=== PATIENT | male | born 1940 ===

== ENCOUNTER 2017-02-22 22:52 | Inpatient (IN) | payer MEDICARE, MEDICAID ==
[2017-02-22] MEDS ORDERED: Iohexol 240 (50 ml) PO ONE (23:20)
[2017-02-22] MEDS ORDERED: Iohexol 240 (50 ml) ONE (23:38)
[2017-02-22 23:41] LABS: BASO # 0.1 K/uL (0.0-0.2); BASO % 0.5 % (0.0-2.0); EOS # 0.3 K/uL (0.0-0.7); EOS % 3.1 % (0.0-4.0); HEMATOCRIT 40.8 % (35.0-51.0); LYMPH # 1.5 K/uL (1.0-4.3); LYMPH % 14.2 % (20.0-40.0); MEAN CELL VOLUME 90.9 fl (80.0-94.0); MEAN CORPUSCULAR HEMOGLOBIN 29.4 pg (27.0-31.0); MEAN CORPUSCULAR HGB CONC 32.3 g/dL (33.0-37.0); MEAN PLATELET VOLUME 9.7 fl (7.2-11.7); MONO # 1.1 K/uL (0.0-0.8); MONO % 10.3 % (0.0-10.0); NEUT # 7.6 K/uL (1.8-7.0); NEUT % 71.9 % (50.0-75.0); RED CELL DISTRIBUTION WIDTH 12.8 % (11.5-14.5); WHITE BLOOD COUNT 10.6 K/uL (4.8-10.8)
[2017-02-22 23:50] LABS: ALB/GLOB RATIO 1.4 (1.0-2.1); ALKALINE PHOSPHATASE 166 U/L (38-126); ALT/SGPT 48 U/L (21-72); AST/SGOT 45 U/L (17-59); BILIRUBIN,TOTAL 1.5 mg/dl (0.2-1.3); BLOOD UREA NITROGEN 13 mg/dl (9-20); CALCIUM 8.5 mg/dL (8.4-10.2); CARBON DIOXIDE 25 mmol/L (22-30); CHLORIDE 104 mmol/L (98-107); GFR AFRICAN-AMERICAN > 60; GLUCOSE,RANDOM 137 mg/dL (75-110); LIPASE 350 U/L (23-300); MAGNESIUM 1.8 MG/DL (1.6-2.3); PHOSPHOROUS 3.1 mg/dl (2.5-4.5); POTASSIUM 3.7 MMOL/L (3.6-5.0); SODIUM 142 mmol/l (132-148); TOTAL PROTEIN 6.6 G/DL (6.3-8.2)
--- NOTE | 2017-02-22 23:51 | ED PDOC ---
HPI: Abdomen Time Seen by Provider: 02/22/17 23:08 Chief Complaint (Nursing): Shortness Of Breath Chief Complaint (Provider): Abdominal Pain History Per: Patient History/Exam Limitations: no limitations Onset/Duration Of Symptoms: Intermittent Episodes, Worse Since (x1 day), Other ( x4 months duration in total) Outside of [place] travel?: No Current Symptoms Are (Timing): Still Present Location Of Pain/Discomfort: RUQ, Epigastric, LUQ Associated Symptoms: Nausea. denies: Fever, Urinary Symptoms Additional Complaint(s): 76 year old male presents to ED with complaints of intermittent abdominal pain x4 months and was recently diagnosed with h. pylori. Patient notes a past medical history of HTN and hypercholesterolemia. Patient notes that he completed a course of medication, but the pain returned x3 months later with more severity. Patient states that yesterday the pain restarted and has been constant since onset. Localizes pain to the epigastric region and radiating to the bilateral upper quadrants. (+) increased reflux and nausea. (-) vomiting, diarrhea, constipation, black/bloody stool, fever, or urinary symptoms. Patient notes that he took antacid for the pain with no relief. Patient also reports an 8 lb. unintentional weight loss since 4 months ago. PCP [facility] Past Medical History Reviewed: Historical Data, Nursing Documentation, Vital Signs Vital Signs: Last Vital Signs Temp 98.8 F 02/25/17 12:00 Pulse 80 02/25/17 12:00 Resp 18 02/25/17 12:00 BP 119/67 02/25/17 12:00 Pulse Ox 90 L 02/25/17 12:00 - Medical History PMH: HTN, Kidney Stones, Chronic Kidney Disease Denies: No Chronic Diseases - Surgical History Other surgeries: Prostate surgery, ureteral stent - Family History Family History: States: No Known Family Hx - Social History Current smoker - smoking cessation education provided: No Ex-Smoker (has not smoked in the last 12 months): No Alcohol: None Drugs: Denies - Home Medications Home Medications: Ambulatory Orders Medication Instructions Recorded Aspirin [[place] Aspirin] 81 mg PO DAILY 10/02/15 Atorvastatin [Lipitor] 20 mg PO DAILY 10/02/15 Losartan [Cozaar] 50 mg PO DAILY 10/02/15 - Allergies Allergies/Adverse Reactions: Allergies Allergy/AdvReac Type Severity Reaction Status Date / Time No Known Allergies Allergy Verified 10/02/15 11:12 Review of Systems ROS Statement: Except As Marked, All Systems Reviewed And Found Negative Constitutional: Positive for: Weight loss (8 lb weight loss in last 4 months). Negative for: Fever Gastrointestinal: Positive for: Nausea, Abdominal Pain (epigastric radiating to bilateral upper quadrants), Other ((+) increased reflux). Negative for: Vomiting, Diarrhea, Constipation, Melena, Hematochezia Genitourinary Male: Negative for: Dysuria, Frequency, Incontinence, Hematuria Physical Exam - Reviewed Nursing Documentation Reviewed: Yes Vital Signs Reviewed: Yes - Physical Exam Appears: Positive for: Non-toxic, In Acute Distress (acute painful distress) Skin: Positive for: Normal Color, Warm, Dry Eye Exam: Positive for: Normal appearance ENT: Positive for: Normal ENT Inspection Neck: Positive for: Normal, Painless ROM, Supple Cardiovascular/Chest: Positive for: Regular Rate, Rhythm Respiratory: Positive for: Normal Breath Sounds. Negative for: Respiratory Distress Gastrointestinal/Abdominal: Positive for: Soft, Tenderness (epigastric and periumbilical TTP). Negative for: Mass, Distended, Guarding, Rebound, Other ((- ) Cortez's or McBurney's point) Back: Positive for: Normal Inspection Extremity: Positive for: Normal ROM. Negative for: Deformity Neurologic/Psych: Positive for: Alert, Oriented. Negative for: Motor/Sensory Deficits - Laboratory Results Result Diagrams: 02/25/17 04:10 02/25/17 04:10 - ECG O2 Sat by Pulse Oximetry: 94 (RA) Pulse Ox Interpretation: Abnormal Medical Decision Making Medical Decision Makin Initial impression: abdominal pain DDx: gastritis, peptic ulcer disease, pancreatitis, cholelithiasis, gastrointestinal mass, cholecystitis Initial plan: * T&S * CTA A/P * EKG * Labs * Lipase * Magnesium * Phosphorus * Trop I * PTT/PT * CXR * Iohexol 50mL PO * Pepcid 20mg IVP * Re-eval Scribe Attestation: Documented by Trista Devi, acting as a scribe for Romina Torres MD Provider Scribe Attestation: All medical record entries made by the Scribe were at my direction and personally dictated by me. I have reviewed the chart and agree that the record accurately reflects my personal performance of the history, physical exam, medical decision making, and the department course for this patient. I have also personally directed, reviewed, and agree with the discharge instructions and disposition. Disposition - Clinical Impression Clinical Impression: Abdominal pain - Disposition Disposition: Transfer of Care Disposition Time: 00:00 Condition: FAIR Patient Signed Over To: Vasu Johnson Handoff Comments: Pending ER wokrup reassesement and final ER disposition
[2017-02-22 23:53] LABS: PARTIAL THROMBOPLASTIN TIME 34.2 Seconds (25.6-37.1)
--- NOTE | 2017-02-23 00:39 | ED PDOC ---
- Laboratory Results Result Diagrams: 02/22/17 23:37 02/22/17 23:37 - ECG O2 Sat by Pulse Oximetry: 94 (RA) Medical Decision Making Medical Decision Makin:05: transfer of staff from Dr. Torres for pending CT and reevaluation. 02:52: Spoke with radiologist who reported findings below. [facility] (Former[facility]3] Final Radiology Report Call: [phone] assistance Online chat: [email or web address] Patient Name: DON BELLA (Age): 1940 76 Gender: M Date of Exam: 02/22/2017 Referring Physician: Romina Torres # of Images: [id number] Ordered As: CT ABD PELVIS PO IV CONTRAST Page 1 of 2 EXAM: CT Abdomen and Pelvis With Intravenous Contrast CLINICAL HISTORY: 76 years old, male; Pain; Abdominal pain; Epigastric; Prior surgery; Surgery date: 6+ months; Surgery type: Prostate surgery. Lt ureteral stent TECHNIQUE: Axial computed tomography images of the abdomen and pelvis with intravenous contrast. All CT scans at this facility use one or more dose reduction techniques, viz.: automated exposure control; ma/kV adjustment per patient size (including targeted exams where dose is matched to indication; i.e. head); or iterative reconstruction technique. Oral contrast was administered. 596 images are submitted. Coronal and sagittal reformatted images were created and reviewed. CONTRAST: 90 mL of administered intravenously. COMPARISON: US - ABDOMEN COMPLETE 05/01/2015 9:20:47 AM FINDINGS: Lower thorax: Mild parabronchial cuffing, which can be seen with bronchitis, reactive airway disease or viral pneumonitis versus mild failure.Bibasilar nonspecific infiltrates are present, consistent with atelectasis or pneumonia versus edema. Cardiomegaly. ABDOMEN: Liver: Multiple liver masses with enhancing hyperdense halo representing hepatic metastasis versus infectious or inflammatory etiology. Correlation with patient's clinical history recommended. Heterogeneous fatty liver. Gallbladder and bile ducts: Unremarkable. No ductal dilation. Pancreas: There is pancreatic ductal dilatation with heterogeneous appearance to the pancreatic neck and body of the pancreas. There is surrounding mesenteric edema and infiltration. The possibility of acute pancreatitis with underlying pancreatic mass cannot be excluded. Spleen: Left upper quadrant splenule. Adrenals: Unremarkable. No mass. Kidneys and ureters: Left renal cysts. There are renal hypodensities too small to characterize. Bilateral extrarenal pelvis with physiologic distention of the ureters. No hydronephrosis. Stomach and bowel: Nonspecific gastric thickening likely due to under distention. Correlation with clinical data is recommended if gastritis is suspected. Diverticulosis. Large amount of stool in the colon. Correlation with patient's clinical history of constipation is recommended. There is thickening of the distal stomach seen on image 55 series 3 and duodenum with surrounding inflammatory change which can represent reactive changes from subadjacent inflammation versus gastritis/duodenitis. Appendix: Normal appendix. PELVIS: Bladder: Distention of prostatic urethra. Partially distended bladder. Reproductive: Enlarged prostate gland. ABDOMEN and PELVIS: Intraperitoneal space: Unremarkable. No free air. No significant fluid collection. Bones/joints: No acute fracture. No dislocation. Soft tissues: Umbilical hernia Vasculature: There is enlargement of SMV with heterogeneous hypodensity and surrounding inflammatory change and represents of SMV thrombus with thrombophlebitis. The thrombus extends into the portal vein seen on image 46 series 601. Lymph nodes: Unremarkable. No enlarged lymph nodes. Other findings: CRITICAL RESULT: The study was personally discussed on the telephone with ?/?/?2016 1:[address] Johnson re: pt. Don Bella on 02/23/2017 2: 52 AM EDT. The results were understood and acknowledged. IMPRESSION: 1. There is pancreatic ductal dilatation with heterogeneous appearance to the pancreatic neck and body of the pancreas. There is surrounding mesenteric edema and infiltration. The possibility of acute pancreatitis with underlying pancreatic mass cannot be excluded. 2. There is enlargement of SMV with heterogeneous hypodensity and surrounding inflammatory change and represents of SMV thrombus with thrombophlebitis. The thrombus extends into the portal vein seen on image 46 series 601. These findings represent acute thrombophlebitis of SMV extending into portal vein. 3. Multiple liver masses with enhancing hyperdense halo representing hepatic metastasis versus infectious or inflammatory etiology. Correlation with patient's clinical history recommended. Thank you for allowing us to participate in the care of your patient. Dictated and Authenticated by: Glenna Louise MD 02/23/2017 2:56 AM Eastern Time ([place] & [place]) 02:59: Call placed for GI consumer product advisor. 03:05: Spoke with Dr. Cordoba, GI Fellow covering for Dr. Ulloa, and discussed the patient's results. Dr. Cordoba who will evaluate the patient in the morning and made no specific recommendations for the present time. 03:15: Spoke with Dr. Post, Office Mail Clerk consumer product advisor, who accepted admission of the patient. Scribe Attestation: Documented by Mel Toro, acting as a scribe for Vasu Johnson MD Provider Scribe Attestation: All medical record entries made by the Scribe were at my direction and personally dictated by me. I have reviewed the chart and agree that the record accurately reflects my personal performance of the history, physical exam, medical decision making, and the department course for this patient. I have also personally directed, reviewed, and agree with the discharge instructions and disposition. Disposition Discussed With Dr.: Lissa Post (Dr Cordoba GI [facility]) Doctor Will See Patient In The: Hospital Counseled Patient/Family Regarding: Studies Performed, Diagnosis - Clinical Impression Clinical Impression: Superior mesenteric vein thrombosis, Pancreatic mass, Hepatic metastasis - POA Present On Arrival: None - Disposition Disposition: Admitted as In-Patient Disposition Time: 03:15 Condition: FAIR
[2017-02-23] MEDS ORDERED: Iohexol 300 100 ML IJ ONE (02:01)
[2017-02-23] MEDS ORDERED: Sodium Chloride 0.9% 50 ML IV ONE (02:01)
--- NOTE | 2017-02-23 02:56 | CT ---
EXAM: CT Abdomen and Pelvis With Intravenous Contrast CLINICAL HISTORY: 76 years old, male; Pain; Abdominal pain; Epigastric; Prior surgery; Surgery date: 6+ months; Surgery type: Prostate surgery. Lt ureteral stent TECHNIQUE: Axial computed tomography images of the abdomen and pelvis with intravenous contrast. All CT scans at this facility use one or more dose reduction techniques, viz.: automated exposure control; ma/kV adjustment per patient size (including targeted exams where dose is matched to indication; i.e. head); or iterative reconstruction technique. Oral contrast was administered. 596 images are submitted. Coronal and sagittal reformatted images were created and reviewed. CONTRAST: 90 mL of [id number] administered intravenously. COMPARISON: US - ABDOMEN COMPLETE 05/01/2015 9:20:47 AM FINDINGS: Lower thorax: Mild parabronchial cuffing, which can be seen with bronchitis, reactive airway disease or viral pneumonitis versus mild failure.Bibasilar nonspecific infiltrates are present, consistent with atelectasis or pneumonia versus edema. Cardiomegaly. ABDOMEN: Liver: Multiple liver masses with enhancing hyperdense halo representing hepatic metastasis versus infectious or inflammatory etiology. Correlation with patient's clinical history recommended. Heterogeneous fatty liver. Gallbladder and bile ducts: Unremarkable. No ductal dilation. Pancreas: There is pancreatic ductal dilatation with heterogeneous appearance to the pancreatic neck and body of the pancreas. There is surrounding mesenteric edema and infiltration. The possibility of acute pancreatitis with underlying pancreatic mass cannot be excluded. Spleen: Left upper quadrant splenule. Adrenals: Unremarkable. No mass. Kidneys and ureters: Left renal cysts. There are renal hypodensities too small to characterize. Bilateral extrarenal pelvis with physiologic distention of the ureters. No hydronephrosis. Stomach and bowel: Nonspecific gastric thickening likely due to under distention. Correlation with clinical data is recommended if gastritis is suspected. Diverticulosis. Large amount of stool in the colon. Correlation with patient's clinical history of constipation is recommended. There is thickening of the distal stomach seen on image 55 series 3 and duodenum with surrounding inflammatory change which can represent reactive changes from subadjacent inflammation versus gastritis/duodenitis. Appendix: Normal appendix. PELVIS: Bladder: Distention of prostatic urethra. Partially distended bladder. Reproductive: Enlarged prostate gland. ABDOMEN and PELVIS: Intraperitoneal space: Unremarkable. No free air. No significant fluid collection. Bones/joints: No acute fracture. No dislocation. Soft tissues: Umbilical hernia Vasculature: There is enlargement of SMV with heterogeneous hypodensity and surrounding inflammatory change and represents of SMV thrombus with thrombophlebitis. The thrombus extends into the portal vein seen on image 46 series 601. Lymph nodes: Unremarkable. No enlarged lymph nodes. Other findings: CRITICAL RESULT: The study was personally discussed on the telephone with ?/??2016 1:[address] Johnson re: pt. Don Bella on 02/23/2017 2:52 AM EDT. The results were understood and acknowledged. IMPRESSION: 1. There is pancreatic ductal dilatation with heterogeneous appearance to the pancreatic neck and body of the pancreas. There is surrounding mesenteric edema and infiltration. The possibility of acute pancreatitis with underlying pancreatic mass cannot be excluded. 2. There is enlargement of SMV with heterogeneous hypodensity and surrounding inflammatory change and represents of SMV thrombus with thrombophlebitis. The thrombus extends into the portal vein seen on image 46 series 601. These findings represent acute thrombophlebitis of SMV extending into portal vein. 3. Multiple liver masses with enhancing hyperdense halo representing hepatic metastasis versus infectious or inflammatory etiology. Correlation with patient's clinical history recommended.
--- NOTE | 2017-02-23 03:56 | CP.PCM.HP ---
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 Patient reports that epigastric pain has not relation with meals, not associated symptoms and it has been worse during the last 2 days. He reports 8 lbs weight loss for the last 4 months and fatigue for the last 3 days . Reports that epigastric pain subsided after H.pilory treatment but it came back again 1 month ago. Denies fever, N,V,D,Constipation , anorexia,melena, hematochezia ,abdominal trauma, hx/o DVT. PMD: CFH PMhx: HTN, HLD Allergies: NKDA Meds: Losartan 50 mg, Atorvastatin 20 mg, Aspirin 81 mg daily PSurgHx: Partial prostatectomy PFhx: Father and mother from CHF. 1 sister from Stomach cancer , 1 sister from Renal Ca. PShx: No ETOH, rect drugs. former smoker for 15 years 2-3 cig day, quit 17 years ago ED course VS: BP: 162/96 RR: 16 O2 sat 94 PE: Abd: TD to palpation over epigastrium, no rebound Td, no guarding. Labs: 10.6 >13.2/40.8<153 PT 17.2 INR 1.5 total charles 1.5 AlkPh 166 lipase: 350 Imaging: CT abd: 1. There is pancreatic ductal dilatation with heterogeneous appearance to the pancreatic neck and body of the pancreas. There is surrounding mesenteric edema and infiltration. The possibility of acute pancreatitis with underlying pancreatic mass cannot be excluded. 2. There is enlargement of SMV with heterogeneous hypodensity and surrounding inflammatory change and represents of SMV thrombus with thrombophlebitis. The thrombus extends into the portal vein seen on image 46 series 601. These findings represent acute thrombophlebitis of SMV extending into portal vein. 3. Multiple liver masses with enhancing hyperdense halo representing hepatic metastasis versus infectious or inflammatory etiology. Correlation with patient's clinical history recommended. Meds: Pepcid 20 mg IV Present on Admission - Present on Admission Any Indicators Present on Admission: No History of DVT/PE: No History of Uncontrolled Diabetes: No Urinary Catheter: No Review of Systems - Gastrointestinal Gastrointestinal: Abdominal Pain Past Patient History - Infectious Disease Hx of Infectious Diseases: None - Past Medical History & Family History Past Medical History?: Yes - Past Social History Alcohol: None Drugs: Denies - CARDIAC Hx Hypertension: Yes - PULMONARY Hx Respiratory Disorders: No - NEUROLOGICAL Hx Neurological Disorder: No - HEENT Hx HEENT Problems: No - RENAL Hx Chronic Kidney Disease: Yes Hx Kidney Stones: Yes - ENDOCRINE/METABOLIC Hx Endocrine Disorders: No - HEMATOLOGICAL/ONCOLOGICAL Hx Blood Disorders: No - INTEGUMENTARY Hx Dermatological Problems: No - MUSCULOSKELETAL/RHEUMATOLOGICAL Hx Musculoskeletal Disorders: No - GASTROINTESTINAL Hx Gastrointestinal Disorders: No - GENITOURINARY/GYNECOLOGICAL Hx Genitourinary Disorders: No - PSYCHIATRIC Hx Psychophysiologic Disorder: No Hx Emotional Abuse: No Hx Physical Abuse: No Hx Substance Use: No - SURGICAL HISTORY Hx Surgeries: Yes Other/Comment: CHARLES. KIDNEY STONE SURGERY, PROSTATE SURGERY - ANESTHESIA Hx Anesthesia: Yes Hx Anesthesia Reactions: No Hx Malignant Hyperthermia: No Meds Allergies/Adverse Reactions: Allergies Allergy/AdvReac Type Severity Reaction Status Date / Time No Known Allergies Allergy Verified 10/02/15 11:12 Physical Exam - Constitutional Appears: No Acute Distress - Head Exam Head Exam: ATRAUMATIC, NORMOCEPHALIC - Eye Exam Eye Exam: Normal appearance - ENT Exam ENT Exam: Mucous Membranes Moist - Neck Exam Neck exam: Positive for: Normal Inspection - Respiratory Exam Respiratory Exam: Clear to Auscultation Bilateral. absent: Rales, Rhonchi, Wheezes - Cardiovascular Exam Cardiovascular Exam: REGULAR RHYTHM, +S1, +S2 - GI/Abdominal Exam GI & Abdominal Exam: Normal Bowel Sounds, Soft, Tenderness (epigastric TD). absent: Guarding, Rebound - Extremities Exam Extremities exam: Positive for: normal capillary refill, normal inspection. Negative for: calf tenderness, pedal edema - Neurological Exam Neurological exam: Alert, Oriented x3 - Psychiatric Exam Psychiatric exam: Normal Affect - Skin Skin Exam: Intact Results - Vital Signs Recent Vital Signs: Last Vital Signs Temp 99.6 F 02/22/17 23:03 Pulse 88 02/22/17 23:03 Resp 16 02/22/17 23:03 BP 162/96 H 02/22/17 23:03 Pulse Ox 94 L 02/23/17 03:28 - Labs Result Diagrams: 02/22/17 23:37 02/22/17 23:37 Labs: Laboratory Results - last 24 hr 02/22/17 02/22/17 02/22/17 23:23 23:37 23:37 WBC 10.6 RBC 4.49 Hgb 13.2 Hct 40.8 MCV 90.9 MCH 29.4 MCHC 32.3 L RDW 12.8 Plt Count 153 MPV 9.7 Neut % (Auto) 71.9 Lymph % (Auto) 14.2 L [place] % (Auto) 10.3 H Eos % (Auto) 3.1 Baso % (Auto) 0.5 Neut # 7.6 H Lymph # 1.5 [place] # 1.1 H Eos # 0.3 Baso # 0.1 PT INR APTT Sodium 142 Potassium 3.7 Chloride 104 Carbon Dioxide 25 Anion Gap 16 BUN 13 Creatinine 0.9 Est GFR ( Amer) > 60 Est GFR (Non-Af Amer) > 60 Random Glucose 137 H Lactic Acid Calcium 8.5 Phosphorus 3.1 Magnesium 1.8 Total Bilirubin 1.5 H AST 45 ALT 48 Alkaline Phosphatase 166 H Troponin I 0.0210 NT-Pro-B Natriuret Pep 151 Total Protein 6.6 Albumin 3.9 Globulin 2.7 Albumin/Globulin Ratio 1.4 Lipase 350 H Blood Type O POSITIVE Antibody Screen Negative BBK History Checked No verified bt 02/22/17 02/23/17 23:37 03:14 WBC RBC Hgb Hct MCV MCH MCHC RDW Plt Count MPV Neut % (Auto) Lymph % (Auto) [place] % (Auto) Eos % (Auto) Baso % (Auto) Neut # Lymph # [place] # Eos # Baso # PT 17.2 H INR 1.5 H APTT 34.2 Sodium Potassium Chloride Carbon Dioxide Anion Gap BUN Creatinine Est GFR ( Amer) Est GFR (Non-Af Amer) Random Glucose Lactic Acid 0.8 Calcium Phosphorus Magnesium Total Bilirubin AST ALT Alkaline Phosphatase Troponin I NT-Pro-B Natriuret Pep Total Protein Albumin Globulin Albumin/Globulin Ratio Lipase Blood Type Antibody Screen BBK History Checked Assessment & Plan - Assessment and Plan (Free Text) Plan: 76 yo , m, PMhx/o HTN, HLD, H/pilori infection admitted for pancreatic mass with SMV thrombus Assesment/Plan 1) Abdominal pain - secondary to pancreatic Ca with liver mets -CT Abd: There is pancreatic ductal dilatation with heterogeneous appearance to the pancreatic neck and body of the pancreas. There is surrounding mesenteric edema and infiltration. The possibility of acute pancreatitis with underlying pancreatic mass cannot be excluded. Multiple liver masses with enhancing hyperdense halo representing hepatic metastasis versus infectious or inflammatory etiology. -NPO -IV fluids NS 110 ml/h -Morphine 1mg IV PRN pain -GI Consult suggested: It was talked with GI fellow. Will see patient in the morning today 2) HTN -c/w Losartan 50 mg daily 3) HLD -Atorvastatin 20 mg daily 4) DVT prophylaxis -SCD. Able to ambulate -pending evaluation by GI (Biopsy?)
[2017-02-23] MEDS: Sodium Chloride 0.9% 1,000 ML IV SCH ×2 (04:30→16:36)
--- NOTE | 2017-02-23 08:29 | CARD ---
APPROVED REPORT EKG Measurement Heart [id number] AL [id number] <Conclusion> Normal sinus rhythm Left axis deviation Abnormal ECG
--- NOTE | 2017-02-23 08:33 | RAD ---
HISTORY: sob COMPARISON: Chest radiographs 04/29/2012. TECHNIQUE: Chest PA and lateral FINDINGS: LUNGS: No active pulmonary disease. PLEURA: No significant pleural effusion identified. No pneumothorax apparent. CARDIOVASCULAR: Normal. OSSEOUS STRUCTURES: No significant abnormalities. VISUALIZED UPPER ABDOMEN: Normal. OTHER FINDINGS: None. IMPRESSION: No interval acute cardiopulmonary disease appreciated.
--- NOTE | 2017-02-23 13:46 | CP.PCM.PN ---
Subjective - Date & Time of Evaluation Date of Evaluation: 02/23/17 Time of Evaluation: 13:39 - Subjective Subjective: 76 yo male admitted after acute onset of epigastric abdominal pain yesterday while returning from trip to [place]. Has been having pain on and off for past 4 months during which he has lost 8 pounds. No regular alcohol use for 30 years and denies cigarettes. Currently pain is better. H/o in the past of prostate surgery and left ureteral stent.Recently underwent H. pylori treatment. On Losartan and atorvostatin. Objective - Vital Signs/Intake and Output Vital Signs (last 24 hours): Temp Pulse Resp BP Pulse Ox 98.7 F 60 18 142/84 96 02/23/17 12:37 02/23/17 13:35 02/23/17 12:37 02/23/17 13:35 02/23/17 12:37 - Medications Medications: Current Medications Atorvastatin Calcium (Lipitor) 20 mg PO DAILY [facility] Last Admin: 02/23/17 13:36 Dose: 20 mg Sodium Chloride (Sodium Chloride 0.9%) 1,000 mls @ 110 mls/hr IV .Q9H6M [facility] Stop: 02/24/17 04:17 Last Admin: 02/23/17 04:30 Dose: 110 mls/hr Losartan Potassium (Cozaar) 50 mg PO DAILY [facility] Last Admin: 02/23/17 13:35 Dose: 50 mg Morphine Sulfate (Morphine) 2 mg IVP Q4 PRN PRN Reason: Pain, severe (8-10) - Labs Labs: 02/22/17 23:37 02/22/17 23:37 PT 17.2 Seconds (9.8-13.1) H 02/22/17 23:37 INR 1.5 (0.9-1.2) H 02/22/17 23:37 APTT 34.2 Seconds (25.6-37.1) 02/22/17 23:37 - Head Exam Head Exam: ATRAUMATIC - Eye Exam Eye Exam: Normal appearance Pupil Exam: PERRL - ENT Exam ENT Exam: Mucous Membranes Moist - Respiratory Exam Respiratory Exam: Clear to Ausculation Bilateral - Cardiovascular Exam Cardiovascular Exam: REGULAR RHYTHM, +S1, +S2 - GI/Abdominal Exam GI & Abdominal Exam: Soft, Tenderness Additional comments: tender epigastrum and RUQ
--- NOTE | 2017-02-23 13:51 | CP.PCM.CON ---
History of Present Illness - History of Present Illness History of Present Illness: 76 yo male came to ER after experiencing severe epigastric abdominal pain after returning from [place]. Has been having on and off pain for past 4 months and has lost 8 pounds. No regular alcohol use for 30 years and denies cigarettes. H/ o prostate surgery and left ureteral stent. Review of Systems - Constitutional Constitutional: absent: Chills - EENT Eyes: absent: Change in Vision Ears: absent: Ear Pain Nose/Mouth/Throat: absent: Epistaxis - Cardiovascular Cardiovascular: absent: Chest Pain - Respiratory Respiratory: absent: Cough - Genitourinary Genitourinary: absent: Difficulty Urinating - Musculoskeletal Musculoskeletal: absent: Abnormal Gait Past Patient History - Infectious Disease Hx of Infectious Diseases: None - Past Medical History & Family History Past Medical History?: Yes - Past Social History Smoking Status: Former Smoker - CARDIAC Hx Hypertension: Yes - PULMONARY Hx Respiratory Disorders: No - NEUROLOGICAL Hx Neurological Disorder: No - HEENT Hx HEENT Problems: No - RENAL Hx Chronic Kidney Disease: Yes Hx Kidney Stones: Yes - ENDOCRINE/METABOLIC Hx Endocrine Disorders: No - HEMATOLOGICAL/ONCOLOGICAL Hx Blood Disorders: No - INTEGUMENTARY Hx Dermatological Problems: No - MUSCULOSKELETAL/RHEUMATOLOGICAL Hx Falls: No - GASTROINTESTINAL Hx Gastrointestinal Disorders: No - GENITOURINARY/GYNECOLOGICAL Hx Genitourinary Disorders: No - PSYCHIATRIC Hx Substance Use: No - SURGICAL HISTORY Hx Surgeries: Yes Other/Comment: CHARLES. KIDNEY STONE SURGERY, PROSTATE SURGERY - ANESTHESIA Hx Anesthesia: Yes Hx Anesthesia Reactions: No Hx Malignant Hyperthermia: No Meds Allergies/Adverse Reactions: Allergies Allergy/AdvReac Type Severity Reaction Status Date / Time No Known Allergies Allergy Verified 10/02/15 11:12 - Medications Medications: Current Medications Atorvastatin Calcium (Lipitor) 20 mg PO DAILY [facility] Last Admin: 02/23/17 13:36 Dose: 20 mg Sodium Chloride (Sodium Chloride 0.9%) 1,000 mls @ 110 mls/hr IV .Q9H6M [facility] Stop: 02/24/17 04:17 Last Admin: 02/23/17 04:30 Dose: 110 mls/hr Losartan Potassium (Cozaar) 50 mg PO DAILY [facility] Last Admin: 02/23/17 13:35 Dose: 50 mg Morphine Sulfate (Morphine) 2 mg IVP Q4 PRN PRN Reason: Pain, severe (8-10) Physical Exam - Constitutional Appears: Well - Head Exam Head Exam: ATRAUMATIC - Eye Exam Eye Exam: Normal appearance - ENT Exam ENT Exam: Normal Exam - Neck Exam Neck exam: Positive for: Normal Inspection - Respiratory Exam Respiratory Exam: Clear to Auscultation Bilateral - Cardiovascular Exam Cardiovascular Exam: REGULAR RHYTHM, +S1, +S2 - GI/Abdominal Exam GI & Abdominal Exam: Normal Bowel Sounds, Soft, Tenderness Additional comments: tender epigastrum and RUQ, no guarding or rebound. Results - Vital Signs Recent Vital Signs: Last Vital Signs Temp 98.7 F 02/23/17 12:37 Pulse 60 02/23/17 13:35 Resp 18 02/23/17 12:37 BP 142/84 02/23/17 13:35 Pulse Ox 96 02/23/17 12:37 - Labs Result Diagrams: 02/22/17 23:37 02/22/17 23:37 Labs: Laboratory Results - last 24 hr 02/22/17 02/22/17 02/22/17 05:25 23:23 23:37 WBC 10.6 RBC 4.49 Hgb 13.2 Hct 40.8 MCV 90.9 MCH 29.4 MCHC 32.3 L RDW 12.8 Plt Count 153 MPV 9.7 Neut % (Auto) 71.9 Lymph % (Auto) 14.2 L [place] % (Auto) 10.3 H Eos % (Auto) 3.1 Baso % (Auto) 0.5 Neut # 7.6 H Lymph # 1.5 [place] # 1.1 H Eos # 0.3 Baso # 0.1 PT INR APTT Sodium Potassium Chloride Carbon Dioxide Anion Gap BUN Creatinine Est GFR ( Amer) Est GFR (Non-Af Amer) Random Glucose Lactic Acid Calcium Phosphorus Magnesium Total Bilirubin AST ALT Alkaline Phosphatase Troponin I NT-Pro-B Natriuret Pep Total Protein Albumin Globulin Albumin/Globulin Ratio Lipase Blood Type O POSITIVE Blood Type Confirm O POSITIVE Antibody Screen Negative BBK History Checked No verified bt 02/22/17 02/22/17 02/23/17 23:37 23:37 03:14 WBC RBC Hgb Hct MCV MCH MCHC RDW Plt Count MPV Neut % (Auto) Lymph % (Auto) [place] % (Auto) Eos % (Auto) Baso % (Auto) Neut # Lymph # [place] # Eos # Baso # PT 17.2 H INR 1.5 H APTT 34.2 Sodium 142 Potassium 3.7 Chloride 104 Carbon Dioxide 25 Anion Gap 16 BUN 13 Creatinine 0.9 Est GFR ( Amer) > 60 Est GFR (Non-Af Amer) > 60 Random Glucose 137 H Lactic Acid 0.8 Calcium 8.5 Phosphorus 3.1 Magnesium 1.8 Total Bilirubin 1.5 H AST 45 ALT 48 Alkaline Phosphatase 166 H Troponin I 0.0210 NT-Pro-B Natriuret Pep 151 Total Protein 6.6 Albumin 3.9 Globulin 2.7 Albumin/Globulin Ratio 1.4 Lipase 350 H Blood Type Blood Type Confirm Antibody Screen BBK History Checked - Imaging and Cardiology CT scan - abdomen Status: Report reviewed by me Assessment & Plan (1) Pancreatic mass Assessment and Plan: In view of patient's age and insidious symptom onset malignancy needs to be ruled out. Reccoment CA 19-9, CEA, AFP, hepatitis profile and addititonal imaging. Either CT of pancreas with pancreatic protocol or MRI/MRCP. Status: Acute (2) Superior mesenteric vein thrombosis Assessment and Plan: Proceed with anticoagulation. Status: Acute
[2017-02-23] MEDS ORDERED: Enoxaparin 60 mg Syringe SC SCH (21:00)
--- NOTE | 2017-02-24 09:23 | CP.PCM.PN ---
Subjective - Date & Time of Evaluation Date of Evaluation: 02/24/17 Time of Evaluation: 09:20 - Subjective Subjective: HD 2 76 YO Male admitted for pancreatic with possibly pancreatic mass and multiple liver lesions S: No acute overnight events. Pt seen and examined by bedside this AM. Pt has been NPO since midnight for biopsy today with Dr. Lang. Pt feels well this morning, still has occasional epigastric pain. Denies chest pain, dyspnea, palpitating, n/v/d/c and temp 100.3 this AM. Of note, pt is Armenian speaking, [employer] used [id number] Objective - Vital Signs/Intake and Output Vital Signs (last 24 hours): Temp Pulse Resp BP Pulse Ox 100.3 F H 73 17 150/80 93 L 02/24/17 08:24 02/24/17 09:09 02/24/17 08:24 02/24/17 09:09 02/24/17 08:24 - Medications Medications: Current Medications Atorvastatin Calcium (Lipitor) 20 mg PO DAILY [facility] Last Admin: 02/24/17 09:10 Dose: Not Given Enoxaparin Sodium (Lovenox) 60 mg SC Q12 [facility] PRN Reason: Protocol Losartan Potassium (Cozaar) 50 mg PO DAILY [facility] Last Admin: 02/24/17 09:09 Dose: Not Given Morphine Sulfate (Morphine) 2 mg IVP Q4 PRN PRN Reason: Pain, severe (8-10) - Labs Labs: 02/22/17 23:37 02/22/17 23:37 PT 17.2 Seconds (9.8-13.1) H 02/22/17 23:37 INR 1.5 (0.9-1.2) H 02/22/17 23:37 APTT 34.2 Seconds (25.6-37.1) 02/22/17 23:37 - Constitutional Appears: Well, Other (looks anxious ) - Head Exam Head Exam: ATRAUMATIC, NORMAL INSPECTION, NORMOCEPHALIC - Eye Exam Eye Exam: EOMI, Normal appearance, PERRL Pupil Exam: NORMAL ACCOMODATION, PERRL - ENT Exam ENT Exam: Mucous Membranes Moist, Normal Exam - Neck Exam Neck Exam: Full ROM, Normal Inspection. absent: Lymphadenopathy - Respiratory Exam Respiratory Exam: Clear to Ausculation Bilateral, NORMAL BREATHING PATTERN. absent: Accessory Muscle Use, Chest Wall Tenderness - Cardiovascular Exam Cardiovascular Exam: REGULAR RHYTHM, +S1, +S2. absent: Murmur - GI/Abdominal Exam GI & Abdominal Exam: Soft, Tenderness (to palpation of epigastric area), Normal Bowel Sounds. absent: Distended, Guarding - Extremities Exam Extremities Exam: Full ROM, Normal Capillary Refill, Normal Inspection. absent : Calf Tenderness, Pedal Edema - Back Exam Back Exam: NORMAL INSPECTION. absent: CVA tenderness (L), CVA tenderness (R) - Neurological Exam Neurological Exam: Alert, Awake, Oriented x3 - Psychiatric Exam Psychiatric exam: Normal Affect, Normal Mood - Skin Skin Exam: Dry, Intact, Normal Color, Warm Assessment and Plan - Assessment and Plan (Free Text) Assessment: Assessment/Plan: 76 YO Male with PMH of HTN, HLD,is admitted for acute pancreatitis with pancreatic mass w/ multiple liver findings 1. Abdominal pain -likely 2/2 to pancreatitis, with pancreatic mass? with possibly liver mets -GI was consulted, Per Dr Lehman, malignancy needs to be ruled out. Recommend CA 19-9, CEA, AFP, hepatitis profile and additional imaging. -Pt started on Lovonox 60 sucut Q12 -follow up CA 19-9 pending, hepatitis profile neg, CEA elevated 115, AFP 2.4 -pending liver biopsy today -pending B12 and TSH -CT chest w/o contrast, follow up 2. Acute thrombophlebitis -as seen in CT, thrombophlebitis in SMV extending into the portal vein -SMV thrombosis, anticoagulation recommended by GI. -will cont Lovonox post procedure 3. Fever, 100.3 -likely 2/2 to pancreatitis with pancreatic findings -blood culture, no growth 24 hrs 4. Elevated alk phos -likely 2/2 to malignancy -will follow up 5. Hypocoagulopathy -elevated INR and PT -likely 2/2 to malignancy -repeat INR and PT in AM 6. HTN, controlled continue management 7. HLD -continue current management 8. DVT prop -scds -lovonox held for biopsy today, will restart post procedure 9. Diet -NPO for biopsy this AM by Dr. Lang -will start liquid post procedure
[2017-02-24] MEDS ORDERED: Lidocaine 1% Inj (20ml) ONE (13:35)
[2017-02-24] MEDS ORDERED: Absorbable Gelatin Sponge Size 12-7 ONE (13:35)
[2017-02-24] MEDS ORDERED: Sodium Chloride 0.9% 50 ML IV ONE (13:36)
[2017-02-24] MEDS ORDERED: Midazolam 2 MG/2 ML VIAL ONE ×2 (14:01→14:12)
[2017-02-24] MEDS ORDERED: Sodium Chloride 0.9% 250 ML IV ONE (14:32)
--- NOTE | 2017-02-24 14:36 | PCM.SURG1 ---
Surgeon's Initial Post Op Note - Surgeon's Notes Surgeon: Eliazar Lang MD Dog Trainer: NONE Type of Anesthesia: IV Sedation, Local Pre-Operative Diagnosis: Liver masses Operative Findings: CT guided right liver mass biopsy. Post-Operative Diagnosis: Hypoechoic right liver mass. Operation Performed: CT guided right liver mass biopsy. Specimen/Specimens Removed: 18 gauge core x 4 Estimated Blood Loss: EBL {In ML}: 1 Blood Products Given: N/A Drains Used: No Drains Post-Op Condition: Fair Date of Surgery/Procedure: 02/24/17 Time of Surgery/Procedure: 14:30
--- NOTE | 2017-02-24 14:50 | US ---
PROCEDURE: Date of procedure: 02/24/2017 Procedure: 1. Guided-guided percutaneous core biopsy of liver mass, CPT [address] guidance for biopsy, CPT 38183 Medications: The patient was sedated by the anesthesiologist with IV sedation and monitoring, 5 cc 1% lidocaine. HISTORY: Right liver mass TECHNIQUE: Following informed consent, the Pt's Abdomen was marked. The Pt was placed supine on the CT table and procedure time out was performed. A noncontrast CT scan confirmed the presence of the 3 centimeter hypodense lesion within the right hepatic lobe. A skin localizer was placed on the patient's abdomen and a repeat CT scan performed. The skin was prepped and draped in the usual sterile fashion. After the patient was sedated by anesthesiologist and the skin anesthetized with 1% lidocaine, an 18 gauge core needle was advanced percutaneously under direct CT guidance into the mass. Upon confirmation of needle position, three core specimens were obtained and sent for routine pathology. The biopsy track was then embolized with Gelfoam. A post biopsy CT scan performed showed no hematoma. A dressing was applied. IMPRESSION: CT-guided core biopsy of right liver mass.
--- NOTE | 2017-02-24 15:14 | CT ---
PROCEDURE: CT Chest, Abdomen with oral contrast, without intravenous contrast. HISTORY: r/o lung disease COMPARISON: February 23, 2017. CT abdomen and pelvis. TECHNIQUE: This CT exam was performed using one or more of the following dose reduction techniques: Automated exposure control, adjustment of the mA and/or kV according to patient size, and/or use of iterative reconstruction technique. Oral contrast only. Radiation dose: Total exam DLP = 594.22 mGy-cm. FINDINGS: CT CHEST WITH CONTRAST: LUNGS: Dependent atelectasis at the lung bases. No suspicious pulmonary nodules, masses, infiltrates. MEDIASTINUM: Unremarkable. Normal caliber aorta and pulmonary arterial trunk. No aortic dissection. Normal size heart. LYMPH NODES: Unremarkable. PLEURA: Unremarkable. No pneumothorax. No pleural fluid. BONES: Unremarkable. OTHER FINDINGS: None. CT ABDOMEN AND PELVIS: LIVER: Hepatic metastatic disease is better appreciated on the prior contrast-enhanced examination. GALLBLADDER AND BILE DUCTS: Unremarkable. PANCREAS: Necrotic mass at the junction of the pancreatic head and body with distal atrophy of the pancreas. SPLEEN: Unremarkable. ADRENALS: Unremarkable. No mass. KIDNEYS AND URETERS: Unremarkable. No hydronephrosis. No solid mass. VASCULATURE: Unremarkable. No aortic aneurysm. BOWEL: Unremarkable. No obstruction. No gross mural thickening. BONES: No acute fracture. OTHER FINDINGS: None. IMPRESSION: Thorax: No suspicious pulmonary nodules, masses or infiltrates. Visualized abdominal structures: No significant interval change compared to the prior examination(s).
[2017-02-24] MEDS ORDERED: Morphine 4 MG/ML VIAL IVP PRN (21:00)
[2017-02-24 21:28] LABS: CA 19-9 43.8 U/mL (0-37)
[2017-02-24] MEDS: Enoxaparin 60 mg Syringe SC SCH (21:49)
[2017-02-25 05:29] LABS: BLOOD UREA NITROGEN 13 mg/dl (9-20); CALCIUM 8.4 mg/dL (8.4-10.2); CARBON DIOXIDE 25 mmol/L (22-30); CHLORIDE 106 mmol/L (98-107); GFR AFRICAN-AMERICAN > 60; GLUCOSE,RANDOM 130 mg/dL (75-110); POTASSIUM 3.8 MMOL/L (3.6-5.0); SODIUM 140 mmol/l (132-148)
[2017-02-25 05:31] LABS: HEMATOCRIT 33.7 % (35.0-51.0); MEAN CELL VOLUME 89.4 fl (80.0-94.0); MEAN CORPUSCULAR HEMOGLOBIN 29.3 pg (27.0-31.0); MEAN CORPUSCULAR HGB CONC 32.7 g/dL (33.0-37.0); RED CELL DISTRIBUTION WIDTH 12.7 % (11.5-14.5); WHITE BLOOD COUNT 13.2 K/uL (4.8-10.8)
[2017-02-25 05:49] LABS: THYROID STIMULATING HORMONE 1.13 mIU/ML (0.46-4.68)
--- NOTE | 2017-02-25 09:10 | CP.PCM.PN ---
Subjective - Date & Time of Evaluation Date of Evaluation: 02/25/17 Time of Evaluation: 09:09 - Subjective Subjective: HD 3 76 YO Male admitted for pancreatic with possibly pancreatic mass and multiple liver lesions S: Biopsy was done yesterday. No acute overnight events. This AM pt states that he has some pain in the biopsy site and vague epigastric pain. Pt states that he is anxious, nervous about biopsy results. Denies chest pain, palpitations, dyspnea, chills, n/v/d/c and remains afebrile. Of note, pt is Lithuanian speaking [employer] [id number]. Objective - Vital Signs/Intake and Output Vital Signs (last 24 hours): Temp Pulse Resp BP Pulse Ox 98.5 F 81 18 120/73 91 L 02/25/17 08:00 02/25/17 08:00 02/25/17 08:00 02/25/17 08:00 02/25/17 08:00 - Medications Medications: Current Medications Atorvastatin Calcium (Lipitor) 20 mg PO DAILY [facility] Last Admin: 02/24/17 18:34 Dose: 20 mg Enoxaparin Sodium (Lovenox) 60 mg SC Q12 [facility] PRN Reason: Protocol Last Admin: 02/24/17 21:49 Dose: 60 mg Losartan Potassium (Cozaar) 50 mg PO DAILY [facility] Last Admin: 02/24/17 18:34 Dose: 50 mg Morphine Sulfate (Morphine) 2 mg IVP Q4 PRN PRN Reason: Pain, severe (8-10) Last Admin: 02/24/17 23:20 Dose: 2 mg - Labs Labs: 02/25/17 04:10 02/25/17 04:10 PT 17.9 Seconds (9.8-13.1) H 02/25/17 04:10 INR 1.6 (0.9-1.2) H 02/25/17 04:10 APTT 37.0 Seconds (25.6-37.1) 02/25/17 04:10 - Constitutional Appears: In Acute Distress, Other (looks his age, comfortable ) - Head Exam Head Exam: ATRAUMATIC, NORMOCEPHALIC - Eye Exam Eye Exam: EOMI, Normal appearance, PERRL - ENT Exam ENT Exam: Mucous Membranes Moist - Neck Exam Neck Exam: Full ROM. absent: Lymphadenopathy - Respiratory Exam Respiratory Exam: Clear to Ausculation Bilateral, NORMAL BREATHING PATTERN - Cardiovascular Exam Cardiovascular Exam: REGULAR RHYTHM, +S1, +S2 - GI/Abdominal Exam GI & Abdominal Exam: Soft, Tenderness (to palpation of epigastric area), Normal Bowel Sounds (Biopsy site seen, covered in gauze. ). absent: Distended, Guarding - Extremities Exam Extremities Exam: Full ROM, Normal Inspection. absent: Pedal Edema, Tenderness - Back Exam Back Exam: NORMAL INSPECTION. absent: CVA tenderness (L), CVA tenderness (R) - Neurological Exam Neurological Exam: Alert, Awake, CN II-XII Intact, Oriented x3 - Psychiatric Exam Psychiatric exam: Anxious, Normal Affect, Normal Mood - Skin Skin Exam: Dry, Intact, Normal Color, Warm Assessment and Plan - Assessment and Plan (Free Text) Assessment: 76 YO Male with PMH of HTN, HLD,is admitted for acute pancreatitis with pancreatic mass w/ liver findings. Biopsy done yesterday, pending results 1. Abdominal pain -likely 2/2 to pancreatitis, with pancreatic mass? with possibly liver mets -GI was consulted, Per Dr Lehman, malignancy needs to be ruled out. Recommend CA 19-9, CEA, AFP, hepatitis profile and additional imaging. -Per GI, pt to have endoscopy today, pt made NPO -Pt started on Lovonox 60 sucut Q12 -CA 19-9- 43.8 (elevated), CEA 115 (elevated), AFP 2.4, hepatitis profile neg -biopsy done yesterday, pending biopsy result -B12 and TSH appreciated, wnl -CT chest w/o contrast appreciated, no suspicious pulmonary nodules, masses or infiltrates. No interval changes seen in visualized abdominal structure. 2. Acute thrombophlebitis -as seen in CT, thrombophlebitis in SMV extending into the portal vein -SMV thrombosis, anticoagulation recommended by GI. -cont anticoagulation with Lovonox -hematology consulted, follow up recs 3. Fever, 100.3, resolved -likely 2/2 to pancreatitis with pancreatic findings -blood culture, no growth 48 hrs 4. Leukocytosis, 13.2 -likely 2/2 to pancreatitis with pancreatic findings -pt remains afebrile -blood culture neg, no growth 48 hrs 5. Elevated alk phos -likely 2/2 to malignancy -will follow up 6. Hypocoagulopathy -elevated INR and PT -likely 2/2 to malignancy -repeat INR and PT remains elevated at 1.6/17.9 7. HTN, controlled continue management 8. HLD -continue current management 9. DVT prop -scds -cont therapeutic lovonox 10. Diet -NPO for endoscopy today
[2017-02-25] MEDS: Enoxaparin 60 mg Syringe SC SCH ×2 (09:41→21:22)
--- NOTE | 2017-02-25 11:27 | CP.PCM.PN ---
Subjective - Date & Time of Evaluation Date of Evaluation: 02/25/17 Time of Evaluation: 11:14 - Subjective Subjective: This is a 76 yrs old male who was admitted with intractable epigastric/RUQ pain . He has had this for almost 1 month. He had H pylorii positive in the blood test and was given antibiotics for 2 weeks. He felt a little better. However the pain came back in 1 week, and was very sore extending to the back and the ruq. A CT scan done during this adsmission showed a ?mass in the head of the pancreas, stranding seen around the pancreas. There is also a mass in the liver which was biopsied today. he was also found to have a a thrombus in the SVC extending into the portal vein. He was started on lovenoxyesterday and i was consulted regarding what oral agent can be used. Past history; Hyperlipidemia, HTN\ No h/o alcohol abuse . pt is a smoker for many years, Objective - Vital Signs/Intake and Output Vital Signs (last 24 hours): Temp Pulse Resp BP Pulse Ox 98.5 F 81 18 120/73 91 L 02/25/17 08:00 02/25/17 09:41 02/25/17 08:00 02/25/17 09:41 02/25/17 08:00 - Medications Medications: Current Medications Atorvastatin Calcium (Lipitor) 20 mg PO DAILY [facility] Last Admin: 02/25/17 09:41 Dose: 20 mg Enoxaparin Sodium (Lovenox) 60 mg SC Q12 [facility] PRN Reason: Protocol Last Admin: 02/25/17 09:41 Dose: 60 mg Losartan Potassium (Cozaar) 50 mg PO DAILY [facility] Last Admin: 02/25/17 09:41 Dose: 50 mg Morphine Sulfate (Morphine) 2 mg IVP Q4 PRN PRN Reason: Pain, severe (8-10) Last Admin: 02/24/17 23:20 Dose: 2 mg - Labs Labs: 02/25/17 04:10 02/25/17 04:10 PT 17.9 Seconds (9.8-13.1) H 02/25/17 04:10 INR 1.6 (0.9-1.2) H 02/25/17 04:10 APTT 37.0 Seconds (25.6-37.1) 02/25/17 04:10 - Additional Findings Additional findings: Physical exam; Alert, well oriented in no acute distress Neck; Supple, no adenopathy Chest; Clear, no rales or rhonchi Heart; RSR, no mumur Abd; Slightly distended, tenderness in the epigastric region and the RUQ Assessment and Plan - Assessment and Plan (Free Text) Assessment: Impression; pancreatic mass with ? liver metastasis. Biopsy done result awaited Thrombus in the SMV extending to the portal. Plan: Plan; pt is on lovenox and will be changed to po anticoagulants. Would suggest lorenais Awaiting liver biopsy report.
--- NOTE | 2017-02-25 17:25 | CP.PCM.PN ---
Subjective - Date & Time of Evaluation Date of Evaluation: 02/25/17 Time of Evaluation: 10:00 - Subjective Subjective: Clinically stable. Has necrotic pancreatic mass head of pancreas. Probable liver mets. Objective - Vital Signs/Intake and Output Vital Signs (last 24 hours): Temp Pulse Resp BP Pulse Ox 99.6 F 81 20 132/72 93 L 02/25/17 16:16 02/25/17 16:16 02/25/17 16:16 02/25/17 16:16 02/25/17 16:16 - Medications Medications: Current Medications Atorvastatin Calcium (Lipitor) 20 mg PO DAILY [facility] Last Admin: 02/25/17 09:41 Dose: 20 mg Enoxaparin Sodium (Lovenox) 60 mg SC Q12 [facility] PRN Reason: Protocol Last Admin: 02/25/17 09:41 Dose: 60 mg Losartan Potassium (Cozaar) 50 mg PO DAILY [facility] Last Admin: 02/25/17 09:41 Dose: 50 mg Morphine Sulfate (Morphine) 2 mg IVP Q4 PRN PRN Reason: Pain, severe (8-10) Last Admin: 02/24/17 23:20 Dose: 2 mg - Labs Labs: 02/25/17 04:10 02/25/17 04:10 PT 17.9 Seconds (9.8-13.1) H 02/25/17 04:10 INR 1.6 (0.9-1.2) H 02/25/17 04:10 APTT 37.0 Seconds (25.6-37.1) 02/25/17 04:10 - Head Exam Head Exam: ATRAUMATIC - Neck Exam Neck Exam: Full ROM - Respiratory Exam Respiratory Exam: Clear to Ausculation Bilateral - Cardiovascular Exam Cardiovascular Exam: REGULAR RHYTHM - GI/Abdominal Exam GI & Abdominal Exam: Soft, Normal Bowel Sounds Assessment and Plan (1) Abdominal pain Assessment & Plan: Mass of head of pancreas. Liver biopsied to r/o mets. High CEA level. Upper endoscopy to rule out gastric mass Status: Acute
[2017-02-25] MEDS ORDERED: Propofol 10 mg/ml Inj (20 ML) ONE (18:35)
[2017-02-25] MEDS ORDERED: Lidocaine 2% MPF (5 ml) Inj ONE (18:36)
[2017-02-25] MEDS ORDERED: Lactated Ringer's 1,000 ML IV ONE (18:40)
[2017-02-25] MEDS ORDERED: Lactated Ringer's 500 ML IV ONE ×2 (18:40)
[2017-02-25 19:28] VITALS: RESP 18
[2017-02-26] MEDS: Enoxaparin 60 mg Syringe SC SCH (09:14)
--- NOTE | 2017-02-26 10:26 | CP.PCM.PN ---
Subjective - Date & Time of Evaluation Date of Evaluation: 02/26/17 Time of Evaluation: 10:22 - Subjective Subjective: Pt had an endoscopy done yeswterday. There was a large hiatal hernia, and inflammatory changes in the stomach and duodenum. No tumor. The [id number] report from the liver biopsy awaited. Objective - Vital Signs/Intake and Output Vital Signs (last 24 hours): Temp Pulse Resp BP Pulse Ox 98.7 F 93 H 18 128/88 94 L 02/26/17 08:00 02/26/17 09:13 02/26/17 08:00 02/26/17 09:13 02/26/17 08:00 Intake and Output: 02/26/17 02/26/17 06:59 18:59 Intake Total 50 Balance 50 - Medications Medications: Current Medications Atorvastatin Calcium (Lipitor) 20 mg PO DAILY [facility] Last Admin: 02/26/17 09:14 Dose: 20 mg Enoxaparin Sodium (Lovenox) 60 mg SC Q12 [facility] PRN Reason: Protocol Last Admin: 02/26/17 09:14 Dose: 60 mg Losartan Potassium (Cozaar) 50 mg PO DAILY [facility] Last Admin: 02/26/17 09:13 Dose: 50 mg Morphine Sulfate (Morphine) 2 mg IVP Q4 PRN PRN Reason: Pain, severe (8-10) Last Admin: 02/24/17 23:20 Dose: 2 mg - Labs Labs: 02/25/17 04:10 02/25/17 04:10 PT 17.9 Seconds (9.8-13.1) H 02/25/17 04:10 INR 1.6 (0.9-1.2) H 02/25/17 04:10 APTT 37.0 Seconds (25.6-37.1) 02/25/17 04:10
[2017-02-26 12:33] VITALS: BP 145/78; PULSE 83; TEMP 99.1; O2SAT 93
--- NOTE | 2017-02-26 12:59 | CP.PCM.DIS ---
Provider - Provider Date of Admission: 02/23/17 02:54 Attending physician: Pretty Mena MD Time Spent in preparation of Discharge (in minutes): 20 Hospital Course - Lab Results Lab Results: Micro Results 02/23/17 02:00 Blood-Venous Blood Culture - Preliminary NO GROWTH AFTER 3 DAYS 02/23/17 03:00 Blood-Venous Blood Culture - Preliminary NO GROWTH AFTER 48 HOURS Most Recent Lab Values WBC 13.2 K/uL (4.8-10.8) H 02/25/17 04:10 RBC 3.77 Mil/uL (4.40-5.90) L 02/25/17 04:10 Hgb 11.0 g/dL (12.0-18.0) L D 02/25/17 04:10 Hct 33.7 % (35.0-51.0) L 02/25/17 04:10 MCV 89.4 fl (80.0-94.0) 02/25/17 04:10 MCH 29.3 pg (27.0-31.0) 02/25/17 04:10 MCHC 32.7 g/dL (33.0-37.0) L 02/25/17 04:10 RDW 12.7 % (11.5-14.5) 02/25/17 04:10 Plt Count 156 K/uL (130-400) 02/25/17 04:10 MPV 9.7 fl (7.2-11.7) 02/22/17 23:37 Neut % (Auto) 71.9 % (50.0-75.0) 02/22/17 23:37 Lymph % (Auto) 14.2 % (20.0-40.0) L 02/22/17 23:37 [place] % (Auto) 10.3 % (0.0-10.0) H 02/22/17 23:37 Eos % (Auto) 3.1 % (0.0-4.0) 02/22/17 23:37 Baso % (Auto) 0.5 % (0.0-2.0) 02/22/17 23:37 Neut # 7.6 K/uL (1.8-7.0) H 02/22/17 23:37 Lymph # 1.5 K/uL (1.0-4.3) 02/22/17 23:37 [place] # 1.1 K/uL (0.0-0.8) H 02/22/17 23:37 Eos # 0.3 K/uL (0.0-0.7) 02/22/17 23:37 Baso # 0.1 K/uL (0.0-0.2) 02/22/17 23:37 PT 17.9 Seconds (9.8-13.1) H 02/25/17 04:10 INR 1.6 (0.9-1.2) H 02/25/17 04:10 APTT 37.0 Seconds (25.6-37.1) 02/25/17 04:10 Sodium 140 mmol/l (132-148) 02/25/17 04:10 Potassium 3.8 MMOL/L (3.6-5.0) 02/25/17 04:10 Chloride 106 mmol/L (98-107) 02/25/17 04:10 Carbon Dioxide 25 mmol/L (22-30) 02/25/17 04:10 Anion Gap 13 (10-20) 02/25/17 04:10 BUN 13 mg/dl (9-20) 02/25/17 04:10 Creatinine 1.0 mg/dL (0.8-1.5) 02/25/17 04:10 Est GFR ( Amer) > 60 02/25/17 04:10 Est GFR (Non-Af Amer) > 60 02/25/17 04:10 Random Glucose 130 mg/dL (75-110) H 02/25/17 04:10 Lactic Acid 0.8 MMOL/L (0.7-2.1) 02/23/17 03:14 Calcium 8.4 mg/dL (8.4-10.2) 02/25/17 04:10 Phosphorus 3.1 mg/dl (2.5-4.5) 02/22/17 23:37 Magnesium 1.8 MG/DL (1.6-2.3) 02/22/17 23:37 Total Bilirubin 1.5 mg/dl (0.2-1.3) H 02/22/17 23:37 AST 45 U/L (17-59) 02/22/17 23:37 ALT 48 U/L (21-72) 02/22/17 23:37 Alkaline Phosphatase 166 U/L (38-126) H 02/22/17 23:37 Troponin I 0.0210 ng/mL (0.00-0.120) 02/22/17 23:37 NT-Pro-B Natriuret Pep 151 pg/ml (0-900) 02/22/17 23:37 Total Protein 6.6 G/DL (6.3-8.2) 02/22/17 23:37 Albumin 3.9 g/dL (3.5-5.0) 02/22/17 23:37 Globulin 2.7 gm/dL (2.2-3.9) 02/22/17 23:37 Albumin/Globulin Ratio 1.4 (1.0-2.1) 02/22/17 23:37 Lipase 350 U/L (23-300) H 02/22/17 23:37 Alpha Fetoprotein 2.4 IU/mL (0.0-7.22) 02/24/17 04:20 Carcinoembryonic Ag 115.0 ng/mL (0-3.0) H 02/24/17 04:20 CA 19-9 Antigen 43.8 U/mL (0-37) H 02/24/17 04:20 Vitamin B12 579 pg/mL (239-931) 02/25/17 04:10 TSH 3rd Generation 1.13 mIU/ML (0.46-4.68) 02/25/17 04:10 Hepatitis A IgM Ab Negative (NEGATIVE) 02/24/17 04:20 Hep Bs Antigen Negative (NEGATIVE) 02/24/17 04:20 Hep B Core IgM Ab Negative (NEGATIVE) 02/24/17 04:20 Hepatitis C Antibody Negative (NEGATIVE) 02/24/17 04:20 Blood Type O POSITIVE 02/22/17 23:23 Blood Type Confirm O POSITIVE 02/22/17 05:25 Antibody Screen Negative 02/22/17 23:23 BBK History Checked No verified bt 02/22/17 23:23 - Hospital Course Hospital Course: 76 YO Male with PMH of HTN, BPH was admitted to [facility] for pancreatic mass with possibly liver mets. 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 Tumor markers CA 19.9, CEA elevated, afp wnl. Biopsy done by Dr. Lang, pending results, Endoscopy no sig findings. Pt given Lovenox for anticoagulation , per Dr Hodge pt will be sent home with Eliquis 2.5mg BID with follow up with Dr. Lehman and [facility] on March 04, 2017. Consults: Dr. Hodge Heme/onc Dr. Lehman GI Dr. Lang IR Discharge Exam - Head Exam Head Exam: ATRAUMATIC, NORMAL INSPECTION, NORMOCEPHALIC - Eye Exam Eye Exam: EOMI, Normal appearance - ENT Exam ENT Exam: Mucous Membranes Moist - Neck Exam Neck exam: Full Rom - Respiratory Exam Respiratory Exam: Clear to PA & Lateral, NORMAL BREATHING PATTERN. absent: Chest Wall Tenderness, Respiratory Distress - Cardiovascular Exam Cardiovascular Exam: REGULAR RHYTHM, +S1, +S2 - GI/Abdominal Exam GI & Abdominal Exam: Normal Bowel Sounds, Tenderness (mild tenderness to palpation of the epigastria ). absent: Distended, Guarding, Mass - Extremities Exam Extremities exam: full ROM - Back Exam Back exam: NORMAL INSPECTION. absent: CVA tenderness (L), CVA tenderness (R) - Neurological Exam Neurological exam: Alert, CN II-XII Intact, Normal Gait, Oriented x3, Reflexes Normal - Psychiatric Exam Psychiatric exam: Normal Affect, Normal Mood - Skin Skin Exam: Dry, Intact, Normal Color, Warm Discharge Plan - Discharge Medications Prescriptions: Apixaban [Eliquis] 2.5 mg PO BID #30 tablet - Follow Up Plan Condition: FAIR Disposition: HOME/ ROUTINE Instructions: Pancreatic Cancer (DC), Liver Cancer (DC), Upper Endoscopy (DC) Additional Instructions: Please follow up with your PMD at the [facility] on 03/04/17 at 9:30am Also please call to make an appointment with the GI doctor Dr. Lehman at Please take the Eliquis as prescribed 2.5mg BID daily. Referrals: Bobby Lehman MD [Staff Provider] -
--- NOTE | 2017-03-12 14:45 | PQF GENQUE ---
Dr. Mena discharge summary documented "pt was admitted with pancreatic mass possibly liver mets." After study what is the final diagnosis/diagnoses for this case? This form is a permanent part of the medical record Clarification of your documentation is requested to better reflect the severity of illness and intensity of treatment of your patient. Indicators present [] Specify: [] [] Specify: [] [] Specify: [] [] Specify: [] Location in the medical record that reflects the above clinical findings: [] Treatment Provided: [] PHYSICIAN'S RESPONSE I will agree with what is written in the discharge summary Pancreatic mass with liver mets BX result was not known until after pt was discharged Based on your medical judgment of the clinical indicators outlined above please clarify the following: [] Practitioner response [] If unable to determine, please check the box, sign and date. Present On Admission (POA) Indicator: [] Present at the time of admission [] Not present at the time of admission [] Clinically Undetermined In responding to this query, please exercise your independent professional judgment. The fact that a question is asked does not imply that any particular answer is desired or expected. Thank you for your clarification on this documentation. If you have any questions please call:[ ] * Thank you, [ ]Ana Silva parking analyst MALIKA
== END 2017-02-26 14:30 | disposition home or self-care (01) | DRG 441 ==
LOC: H.ER 22:52 → H.ERHOLD 02-23 02:54 → H.TEL 02-23 05:03
PROVIDERS: ADMIT Family Medicine Geriatric Medicine; ATTEND Family Medicine Geriatric Medicine
PROC: 0FB13ZX Excision of Right Lobe Liver, Percutaneous Approach, Diagnostic (ICD-10-PCS; principal; 2017-02-24 14:00)
PROC: 0DJ08ZZ Inspection of Upper Intestinal Tract, Via Natural or Artificial Opening Endoscopic (ICD-10-PCS; 2017-02-25)
DX: K75.1 Phlebitis of portal vein (principal); K85.90 Acute pancreatitis without necrosis or infection, unspecified; I81 Portal vein thrombosis; C78.7 Secondary malignant neoplasm of liver and intrahepatic bile duct; I12.9 Hypertensive chronic kidney disease with stage 1 through stage 4 chronic kidney disease, or unspecified chronic kidney disease; E78.5 Hyperlipidemia, unspecified; E78.00 Pure hypercholesterolemia, unspecified; N18.9 Chronic kidney disease, unspecified; N40.0 Benign prostatic hyperplasia without lower urinary tract symptoms; K31.9 Disease of stomach and duodenum, unspecified; K44.9 Diaphragmatic hernia without obstruction or gangrene; R79.1 Abnormal coagulation profile; K86.9 Disease of pancreas, unspecified